=== PATIENT | female | born 1970 | race Caucasian/White ===

== ENCOUNTER 2020-02-03 20:22 | Inpatient (IN) | payer BC, SELFPAY ==
[~2020-02-03] VITALS: Ht 165.1 cm; Wt 73.5 kg
[2020-02-03 20:24] VITALS: Ht 165.1 cm; Wt 73.5 kg
[2020-02-03 23:09] LABS: BASOPHIL % 0.2 % (0-2); PLATELET COUNT 277 x10^3mcL (130-400); RED CELL DISTRIBUTION WIDTH 12.3 % (11.5-14.5)
[2020-02-03 23:15] LABS: CARBON DIOXIDE 27.2 mmol/L (21-32); CHLORIDE SERUM 99 mmol/L (98-107); CREATININE SERUM 0.8 mg/dL (0.6-1.0); GFR1 > 60 mL/min; GLUCOSE SERUM 115 mg/dL (74-106); POTASSIUM SERUM 3.7 mmol/L (3.5-5.1); SODIUM SERUM 134 mmol/L (136-145)
[2020-02-03 23:20] LABS: ALBUMIN 2.8 g/dL (3.4-5.0); ALKALINE PHOSPHATASE 168 U/L (46-116); ALT/SGPT 93 U/L (14-59); AST/SGOT 79 U/L (15-37); BILIRUBIN TOTAL 0.47 mg/dL (0.20-1.00); TOTAL PROTEIN, SERUM 7.4 g/dL (6.4-8.2)
[2020-02-04 01:56] LABS: C REACTIVE PROTEIN 28.3 mg/dL (<=0.9)
[2020-02-04 02:03] LABS: MAGNESIUM 2.5 mg/dL (1.8-2.4); PHOSPHOROUS 3.7 mg/dL (2.5-4.9)
[2020-02-04 02:11] LABS: T3 TOTAL 0.88 ng/mL
[2020-02-04 02:26] LABS: FREE T4 1.56 ng/dL (0.76-1.46); FREE THYROXINE INDEX 4.2 ug/dL (1.4-4.5); T4(THYROXINE) 11.4 ug/dL (4.7-13.3)
[2020-02-04 07:57] LABS: microscopic required? NO
[2020-02-04 08:21] LABS: BASOPHIL % 0.2 % (0-2); PLATELET COUNT 268 x10^3mcL (130-400); RED CELL DISTRIBUTION WIDTH 12.6 % (11.5-14.5)
[2020-02-04 09:54] LABS: CARBON DIOXIDE 26.5 mmol/L (21-32); CHLORIDE SERUM 100 mmol/L (98-107); CREATININE SERUM 0.7 mg/dL (0.6-1.0); GFR1 > 60 mL/min; GLUCOSE SERUM 107 mg/dL (74-106); POTASSIUM SERUM 3.8 mmol/L (3.5-5.1); SODIUM SERUM 135 mmol/L (136-145)
[2020-02-04 10:01] LABS: urine erythrocyte NEGATIVE (NEGATIVE)
[2020-02-04 10:40] LABS: AMPHETAMINE QUAL UR NONE DETECTED (See below)
[2020-02-05 01:23] VITALS: BP 94/54
[2020-02-05 05:56] VITALS: BP 98/54
[2020-02-05 08:33] LABS: PLATELET COUNT 398 x10^3mcL (179-408); RED CELL DISTRIBUTION WIDTH 13.3 % (12.3-17.7)
[2020-02-05 08:36] VITALS: BP 97/60
[2020-02-05 08:53] LABS: CALCIUM 8.8 mg/dL (8.5-10.1); CARBON DIOXIDE 28.4 mmol/L (21-32); CHLORIDE SERUM 101 mmol/L (98-107); CREATININE SERUM 0.6 mg/dL (0.6-1.0); GFR1 > 60 mL/min; GLUCOSE SERUM 101 mg/dL (74-106); MAGNESIUM 2.8 mg/dL (1.8-2.4); PHOSPHOROUS 3.9 mg/dL (2.5-4.9); POTASSIUM SERUM 3.7 mmol/L (3.5-5.1); SODIUM SERUM 138 mmol/L (136-145)
[2020-02-05 12:42] VITALS: BP 91/42
[2020-02-05 12:54] LABS: MONOCYTE 13.1 % (0-7); SEGMENTED NEUTROPHILS 73.7 % (37-75); rbc morphology (normal/abnorm) NORMAL (NORMAL)
[2020-02-05 17:29] VITALS: BP 88/44
[2020-02-05 22:15] VITALS: BP 93/49
[2020-02-06 06:40] VITALS: BP 96/43
[2020-02-06 07:57] LABS: BASOPHIL % 0.1 % (0.2-1.3); RED CELL DISTRIBUTION WIDTH 13.5 % (12.3-17.7)
[2020-02-06 08:22] LABS: C REACTIVE PROTEIN 7.3 mg/dL (<=0.9); CALCIUM 8.7 mg/dL (8.5-10.1); CARBON DIOXIDE 29.3 mmol/L (21-32); CHLORIDE SERUM 103 mmol/L (98-107); CREATININE SERUM 0.7 mg/dL (0.6-1.0); GFR1 > 60 mL/min; GLUCOSE SERUM 88 mg/dL (74-106); SODIUM SERUM 140 mmol/L (136-145)
[2020-02-06 09:00] LABS: PLATELET COUNT 448 x10^3mcL (179-408)
[2020-02-06 09:07] VITALS: BP 96/54
[2020-02-06 12:36] VITALS: BP 96/54
[2020-02-06 15:35] LABS: ALBUMIN 2.5 g/dL (3.4-5.0); BILIRUBIN DIRECT 0.09 mg/dL (0.0-0.2); BILIRUBIN TOTAL 0.18 mg/dL (0.20-1.00); TOTAL PROTEIN, SERUM 6.7 g/dL (6.4-8.2)
[2020-02-06 17:11] VITALS: BP 96/51
[2020-02-06 21:48] VITALS: BP 100/56
[2020-02-07 06:15] VITALS: BP 98/56
[2020-02-07 07:53] LABS: RED CELL DISTRIBUTION WIDTH 13.3 % (12.3-17.7)
[2020-02-07 09:02] VITALS: BP 92/54
[2020-02-07 09:20] LABS: BILIRUBIN DIRECT 0.12 mg/dL (0.0-0.2); BILIRUBIN TOTAL 0.24 mg/dL (0.20-1.00); TOTAL PROTEIN, SERUM 6.3 g/dL (6.4-8.2)
[2020-02-07 09:22] LABS: ALBUMIN 2.2 g/dL (3.4-5.0)
[2020-02-07 09:25] LABS: PLATELET COUNT 456 x10^3mcL (179-408)
[2020-02-07 16:46] LABS: SEGMENTED NEUTROPHILS 54 % (37-75)
[2020-02-07 16:47] LABS: BAND NEUTROPHIL 7 % (0-10); METAMYELOCTE 1 % (0-2); MONOCYTE 11 % (0-7); MYELOCYTE 1 % (0-2)
[2020-02-07 16:48] LABS: PLATELET MORPHOLOGY PLATELETS INCREASED; rbc morphology (normal/abnorm) NORMAL (NORMAL)
[2020-02-07 17:09] LABS: CALCIUM 8.8 mg/dL (8.5-10.1); CARBON DIOXIDE 23.2 mmol/L (21-32); CHLORIDE SERUM 110 mmol/L (98-107); CREATININE SERUM 0.7 mg/dL (0.6-1.0); GFR1 > 60 mL/min; GLUCOSE SERUM 89 mg/dL (74-106); POTASSIUM SERUM 4.3 mmol/L (3.5-5.1); SODIUM SERUM 151 mmol/L (136-145)
[2020-02-07 23:46] VITALS: BP 97/55
[2020-02-08 05:57] VITALS: BP 97/56
[2020-02-08 08:17] LABS: BASOPHIL % 0.4 % (0.2-1.3); RED CELL DISTRIBUTION WIDTH 13.4 % (12.3-17.7)
[2020-02-08 08:22] LABS: BILIRUBIN DIRECT 0.11 mg/dL (0.0-0.2); BILIRUBIN TOTAL 0.28 mg/dL (0.20-1.00); TOTAL PROTEIN, SERUM 6.3 g/dL (6.4-8.2)
[2020-02-08 08:27] LABS: ALBUMIN 2.3 g/dL (3.4-5.0)
[2020-02-08 08:47] LABS: C REACTIVE PROTEIN 5.5 mg/dL (<=0.9); CALCIUM 8.5 mg/dL (8.5-10.1); CARBON DIOXIDE 27.2 mmol/L (21-32); CHLORIDE SERUM 103 mmol/L (98-107); CREATININE SERUM 0.5 mg/dL (0.6-1.0); GFR1 > 60 mL/min; GLUCOSE SERUM 82 mg/dL (74-106); POTASSIUM SERUM 3.7 mmol/L (3.5-5.1); SODIUM SERUM 139 mmol/L (136-145)
[2020-02-08 08:56] VITALS: BP 96/48
[2020-02-08 09:31] LABS: PLATELET COUNT 470 x10^3mcL (179-408)
[2020-02-08 12:05] VITALS: BP 95/48
[2020-02-08 16:42] VITALS: BP 94/40
[2020-02-08 21:19] VITALS: BP 98/54
[2020-02-09 05:43] VITALS: BP 92/46
[2020-02-09 07:47] LABS: BASOPHIL % 0.1 % (0.2-1.3); RED CELL DISTRIBUTION WIDTH 13.1 % (12.3-17.7)
[2020-02-09 09:10] LABS: CALCIUM 8.7 mg/dL (8.5-10.1); CARBON DIOXIDE 28.2 mmol/L (21-32); CHLORIDE SERUM 102 mmol/L (98-107); CREATININE SERUM 0.6 mg/dL (0.6-1.0); GFR1 > 60 mL/min; GLUCOSE SERUM 74 mg/dL (74-106); POTASSIUM SERUM 3.8 mmol/L (3.5-5.1); SODIUM SERUM 139 mmol/L (136-145)
[2020-02-09 09:11] VITALS: BP 98/54
[2020-02-09 09:12] LABS: BILIRUBIN DIRECT 0.13 mg/dL (0.0-0.2); BILIRUBIN TOTAL 0.34 mg/dL (0.20-1.00); TOTAL PROTEIN, SERUM 6.5 g/dL (6.4-8.2)
[2020-02-09 09:16] LABS: ALBUMIN 2.4 g/dL (3.4-5.0)
[2020-02-09 10:10] LABS: PLATELET COUNT 525 x10^3mcL (179-408)
[2020-02-09 11:00] VITALS: BP 100/60
[2020-02-09 16:37] VITALS: BP 100/60; BP 11/60
[2020-02-09 22:02] VITALS: BP 104/51
[2020-02-10 05:29] VITALS: BP 98/53
[2020-02-10 08:11] LABS: BASOPHIL % 0.3 % (0.2-1.3)
[2020-02-10 08:24] LABS: CALCIUM 8.2 mg/dL (8.5-10.1); CHLORIDE SERUM 104 mmol/L (98-107); CREATININE SERUM 0.5 mg/dL (0.6-1.0); GFR1 > 60 mL/min; GLUCOSE SERUM 87 mg/dL (74-106); POTASSIUM SERUM 4.1 mmol/L (3.5-5.1); SODIUM SERUM 140 mmol/L (136-145)
[2020-02-10 08:27] VITALS: BP 96/48
[2020-02-10 08:41] LABS: ALBUMIN 2.3 g/dL (3.4-5.0); BILIRUBIN DIRECT 0.13 mg/dL (0.0-0.2); BILIRUBIN TOTAL 0.3 mg/dL (0.20-1.00); TOTAL PROTEIN, SERUM 6.1 g/dL (6.4-8.2)
[2020-02-10 12:13] LABS: PLATELET COUNT 566 x10^3mcL (179-408)
[2020-02-10 12:33] VITALS: BP 93/48
[2020-02-10 15:40] VITALS: BP 133/70
[2020-02-10 21:05] VITALS: BP 90/54
[2020-02-11 06:13] VITALS: BP 97/56
[2020-02-11 09:03] VITALS: BP 100/52
[2020-02-11 11:24] VITALS: BP 110/61
[2020-02-11 11:52] VITALS: BP 102/60
== END 2020-02-11 18:42 | disposition home or self-care (01) | DRG 177 ==
LOC: ED 20:22 → DU 02-04 00:11
PROVIDERS: Internal Medicine Critical Care Medicine; Student in an Organized Health Care Education/Training Program; ADMIT Family Medicine; ATTEND Family Medicine
PROC: XW033E5 Introduction of Remdesivir Anti-infective into Peripheral Vein, Percutaneous Approach, New Technology Group 5 (ICD-10-PCS; principal; 2020-02-06)
DX: U07.1 COVID-19 (principal); J12.89 Other viral pneumonia; J96.01 Acute respiratory failure with hypoxia; E43 Unspecified severe protein-calorie malnutrition; E87.1 Hypo-osmolality and hyponatremia; E44.1 Mild protein-calorie malnutrition; Z68.28 Body mass index [BMI] 28.0-28.9, adult; E66.9 Obesity, unspecified; Z71.3 Dietary counseling and surveillance
CPT/HCPCS: 36600; 83880; 84439; 85378; G0378; J0456; J0696; J1100; J1650; J3490; J3535; J7040; J7050; J7060; U0003